=== PATIENT | male | born 1995 | race Hispanic/Latino ===

== ENCOUNTER 2024-10-21 10:47 | Emergency (ER) | payer SELFPAY ==
[~2024-10-21] VITALS: Ht 177.8 cm; Wt 81.6 kg
[2024-10-21] MEDS ORDERED: SULF1TAB42 PO (11:16)
--- NOTE | 2024-10-21 11:17 | ERN ---
ED Note History of Present Illness Stated Complaint: FOOT PROBLEM Chief Complaint: FOOT INJURY/PAIN Time Seen by MD: 10:54 Time Seen by Midlevel: 11:00 Dictation: 29-year-old male with no medical history coming in complaining of rash to right foot that has been going on for two weeks. Patient states started off with his right great toe and progressed to his entire foot. Patient states he wears boots every day and works in [employer]. Patient states he does sweat a lot from his feet. Denies having any fever, nausea, vomiting, diarrhea, headache. Allergies: Coded Allergies: No Known Drug Allergies (Unverified Allergy, Unknown, 10/21/24) Past Medical History Past Medical History: Diabetes-Type II Surgical History: None Review of System Dictation Constitutional: Negative for fever,chills, and weight loss Eyes: Negative for injury, pain,redness, and discharge ENT: Negative for injury,pain or swelling Cardiovascular: Negative for chest pain, palpitations, and edema Respiratory: Negative for shortness of breath, cough, and wheezing, Abdomen/GI: Negative for abdominal pain, nausea, vomiting, diarrhea, and constipation Back: Negative for injury and pain : Negative for injury, bleeding and discharge MS/Extremity: Negative for injury and deformity Skin: A rash to right foot Neuro: Negative for headache, weakness, numbness, tingling, and seizure Psych: Negative for suicide ideation, homicidal ideation, and hallucinations Review of Systems: was completed Initial Vital Sign VS Vital Signs Date Time Temp Pulse Resp B/P (MAP) Pulse Ox O2 Delivery O2 Flow Rate FiO2 10/21/24 10:49 97.7 60 16 125/86 99 Room Air Physical Exam Dictation General: awake, alert, NAD Head/Face: Normocephalic, atraumatic Eyes: PERRL, EOMI, vision at baseline ENT: oral cavity clear, TMs clear, no signs of infection Neck: Trachea midline, supple, no nuchal rigidity Cardiovascular: RRR, normal S1/S2, No MRGs, no JVD Respiratory: CTAB, no respiratory distress, No rales or wheezes Abdomen: Soft, non-tender, non-distended, normal bowel sounds, no guarding or rebound. Skin: Excoriation/maceration noted to the dorsal and plantar aspect of the foot. Patient states sometimes it is itchy, denies having any pain. There is no swelling, pulses intact MS/Extremity: Pulses equal, no cyanosis, neurovascular intact, FROM Neuro: COAx4, GCS 15, strength 5/5, CN 2-12 intact, normal cerebellar exam, normal gait, Psych: Normal behavior, mood, and affect normal ED Course ED Course Orders Procedure Category Date Status Time Anaerobic Culture JACKSON 10/21/24 Logged 11:03 Vital Signs Date Time Temp Pulse Resp B/P (MAP) Pulse Ox O2 Delivery O2 Flow Rate FiO2 10/21/24 10:49 97.7 60 16 125/86 99 Room Air Medical Decision Making MDM MDM: 29-year-old male with no medical history coming in complaining of rash to right foot that has been going on for two weeks. Patient states started off with his right great toe and progressed to his entire foot. Patient states he wears boots every day and works in [employer]. Patient states he does sweat a lot from his feet. Denies having any fever, nausea, vomiting, diarrhea, headache. After assessment and consulted with the ER MD patient will be discharged on Bactrim. Educated patient to avoid having the area moist in wearing boots for the next couple of weeks. Educated to follow up with PCP or truck into the ER if any symptoms worsen. Differential diagnosis: Cellulitis, fungal infection, staph infections, impetigo, hyperhidrosis Rationale: Tests considered and ordered secondary to shared decision making include: Previous outside records reviewed: Old ER visits. Risk of complication and/or morbidity or mortality of patient management: None Medications-Per medication reconciliation Need for hospitalization: Patient does not meet criteria for hospitalization. Need for emergency major/minor surgery: No There are no social concerns with this patient. Prescription drug management Prescriptions will include symptomatic care Patient's prior external medical records from other ER visits were reviewed by me as indicated. Prior testing and results from previous visits were reviewed. Prior tests were taken into account with medical decision making and resource utilization, independent historian/historians were used to obtain complete medical history. I independently interpreted the test that were performed, results were reviewed by me and considered findings on radiology if ordered. Medical management and examination interpretation discussions were had by me with other qualified healthcare professionals as indicated for the patient's care. DX & DISP Disposition: Discharge Departure Impression: Primary Impression: Impetigo Condition: Stable Scripts Sulfamethoxazole/Trimethoprim (Bactrim Ds Tablet) 800 Mg-160 Mg Tablet 1 TAB PO BID for 7 Days, #14 TAB 0 Refills Prov: PAM VILLAFANA NP 10/21/24 Additional Instructions: Did not wheel boot for the next couple of weeks, avoid keeping the area moist. Take antibiotic as prescribed. Follow up with your primary doctor in 1-2 days. Referrals: SELF,REFERRAL (PCP) Time of Disposition: 11:16 I have reviewed the case, and I agree with, Diagnosis and Plan PAM VILLAFANA NP Oct 21, 2024 11:17
[2024-10-21 12:41] VITALS: BP 120/80; PULSE 60; RESP 16; TEMP 98.1; O2SAT 98
== END 2024-10-21 12:52 | disposition home or self-care (01) ==
LOC: EDH 10:50
DX: L01.00 Impetigo, unspecified (principal); E11.9 Type 2 diabetes mellitus without complications
CPT/HCPCS: 87076; 99283